=== PATIENT | male | born 1945 | race Caucasian/White ===

== ENCOUNTER → 2016-04-25 | Outpatient (CLI) | payer BC ==
[~2016-04-25] MED LIST: ASPEC81 PO; ASPI81TA28 PO; CARV6.25 PO; CHOL100041 PO; DILT180C70 PO; IBUP-1427 PO; LPT10 PO; LSN/10125 PO; MULTTAB PO; NIAC500T11 PO; NRN/600 PO; OMEG10007 PO; ONDA8TAB6 PO; PRAM1.5T PO; PRLSR20 PO; TADA10TA PO; TADA20TA PO
[2016-04-25 09:47] LABS: CALCIUM 8.7 mg/dl (8.5-10.1)
[2016-04-25 10:04] LABS: CALCIUM URINE 6.1 mg/dl
== END | disposition home or self-care (01) ==
LOC: C.LAB1850 07:17
PROVIDERS: ATTEND Internal Medicine Endocrinology, Diabetes & Metabolism
DX: E83.51 Hypocalcemia (principal); E21.3 Hyperparathyroidism, unspecified

== ENCOUNTER → 2016-05-02 | Outpatient (CLI) | payer BC ==
[~2016-05-02] MED LIST changes: -LSN/10125 PO; -NRN/600 PO
== END | disposition home or self-care (01) ==
LOC: C.LAB 07:49
PROVIDERS: ATTEND Internal Medicine Endocrinology, Diabetes & Metabolism
DX: E27.9 Disorder of adrenal gland, unspecified (principal)

== ENCOUNTER → 2016-06-19 | Outpatient (CLI) | payer BC ==
[2016-06-19 13:59] LABS: BLOOD UREA NITROGEN 18 mg/dl (7-18); GLUCOSE 104 mg/dl (70-99)
[2016-06-19 14:00] LABS: ALT/SGPT 20 U/L (12-78); BUN/CREATININE RATIO 16.1 (10-20); CALCIUM 8.8 mg/dl (8.5-10.1); CARBON DIOXIDE 30 mmol/L (21-32); CHLORIDE 103 mmol/L (98-107); CHOLESTEROL 134 mg/dl (0-200); POTASSIUM 4.1 mmol/L (3.5-5.1); SODIUM 138 mmol/L (136-145); TRIGLYCERIDES 115 mg/dl (0-150); VERY LOW DENSITY LIPOPROT CALC 23 mg/dl
[2016-06-19 14:02] LABS: ALB/GLOB RATIO 1.1 (0.9-2); ALKALINE PHOSPHATASE 91 U/L (45-117); AST/SGOT 13 U/L (15-37); CHOLESTEROL/HDL RATIO 3.7; HDL CHOLESTEROL 36 mg/dl; LDL CHOLESTEROL CALCULATED 75 mg/dl
== END | disposition home or self-care (01) ==
LOC: C.LAB1850 11:15
PROVIDERS: ATTEND Nurse Practitioner Family
DX: E78.5 Hyperlipidemia, unspecified (principal); E83.51 Hypocalcemia; I10 Essential (primary) hypertension; R73.9 Hyperglycemia, unspecified

== ENCOUNTER → 2016-07-31 | Outpatient (CLI) | payer BC ==
[~2016-07-31] MED LIST changes: +LSN/10125 PO; +NRN/600 PO
[2016-07-31 10:31] LABS: BLOOD UREA NITROGEN 21 mg/dl (7-18); BUN/CREATININE RATIO 17.1 (10-20); CALCIUM 8.6 mg/dl (8.5-10.1); CARBON DIOXIDE 30 mmol/L (21-32); CHLORIDE 107 mmol/L (98-107); GLUCOSE 104 mg/dl (70-99); POTASSIUM 3.5 mmol/L (3.5-5.1); SODIUM 144 mmol/L (136-145)
== END | disposition home or self-care (01) ==
LOC: C.LAB1850 09:06
PROVIDERS: ATTEND Internal Medicine Clinical Cardiac Electrophysiology
DX: I10 Essential (primary) hypertension (principal)

== ENCOUNTER 2016-12-30 04:09 | Emergency (ER) | payer BC ==
[~2016-12-30] VITALS: Ht 182.9 cm; Wt 96.1 kg
[~2016-12-30 04:09] MED LIST changes: -ASPI81TA28 PO; -IBUP-1427 PO; -LSN/10125 PO; -NRN/600 PO; -TADA20TA PO
[2016-12-30 04:15] VITALS: O2SAT 97; Ht 182.9 cm; Wt 96.1 kg
--- NOTE | 2016-12-30 04:28 | EMERGENCY ROOM VISIT NOTE ---
History Report prepared by Haile: Maxx Preciado Under the Supervision of: Dr. Casey Montana D.O. First contact with patient: 04:16 Chief Complaint: CARDIAC ASSESSMENT Stated Complaint: CARDIAC SYMPTOMS History of Present Illness The patient is a 71 year old male who presents to the Emergency Room with complaints of nausea that began 3 hours ago. At this time, the patient was going to bed when his symptoms began. He began to feel very "spaced out," with some tingling globally. He was driving to the ER in his private vehicle when he became short of breath, more nauseated, and had some chest tightness. He then called EMS for assistance. He currently feels better without shortness of breath or chest discomfort. He notes to have received an echocardiogram in the recent past. Source of History: patient Onset: 3 hours ago Position: other (GI) Symptom Intensity: moderate Quality: other (Nausea) Timing: worsening Associated Symptoms: + chest pain (Resolved), + SOB (Resolved) Note: He feels spaced out. He denies any other abnormal symptoms at this time. Review of Systems See HPI for pertinent positives and negatives. A total of ten systems were reviewed and were otherwise negative. Past Medical & Surgical Medical Problems: (1) HTN (hypertension) Family History Omitted secondary to the patient's age. Social History Smoking Status: Former Smoker Smokeless Tobacco Use: No Drug Use: none Marital Status: Housing Status: lives with significant other Occupation Status: employed Current/Historical Medications Scheduled Aspirin Enteric Coated (Ecotrin Or Generic *), 81 MG PO HS Atorvastatin (Atorvastatin Calcium), 0.5 TAB PO HS Carvedilol (Coreg), 6.25 MG PO BID Cholecalciferol (D 1000), 1 CAP PO HS Diltiazem Hcl (Diltiazem Hcl), 1 CAP PO HS Fish Oil ([place]-3), 3 CAP PO TID Niacin (Niacin), 500 MG PO HS Omeprazole (Prilosec), 20 MG PO QAM Pramipexole Dihydrochloride (Mirapex), 1 TAB PO HS Tadalafil (Cialis), 20 MG PO UD [Centrum], 1 TAB PO HS Scheduled PRN Ondansetron Hcl (Zofran), 8 MG PO Q6H PRN for Nausea Allergies Coded Allergies: No Known Allergies (Verified , 10/07/15) Physical Exam Vital Signs Date Time Temp Pulse Resp B/P (MAP) Pulse Ox O2 Delivery O2 Flow Rate FiO2 12/30/16 04:17 76 12/30/16 04:15 78 18 139/84 97 Room Air 12/30/16 04:15 97 Room Air 12/30/16 04:15 97 Room Air 12/30/16 04:13 94 Room Air Physical Exam GENERAL: Awake, alert, well-appearing, in no distress HENT: Normocephalic, atraumatic. Oropharynx unremarkable. EYES: Normal conjunctiva. Sclera non-icteric. NECK: Supple. No nuchal rigidity. FROM. No JVD. RESPIRATORY: Clear to auscultation. CARDIAC: Regular rate, normal rhythm. Extremities warm and well perfused. Pulses equal. ABDOMEN: Soft, non-distended. No tenderness to palpation. No rebound or guarding. No masses. RECTAL: Deferred. MUSCULOSKELETAL: Chest examination reveals no tenderness. The back is symmetrical on inspection without obvious abnormality. There is no CVA tenderness to palpation. No joint edema. LOWER EXTREMITIES: Calves are equal size bilaterally and non-tender. No edema. No discoloration. NEURO: Normal sensorium. No sensory or motor deficits noted. SKIN: No rash or jaundice noted. Medical Decision & Procedures ER Provider Diagnostic Interpretation: Radiology results as stated below per my review and radiologist interpretation: Chest x-ray 1 view Findings: A chest x-ray was performed and revealed no pneumothorax, effusion, infiltrate, pulmonary edema, free air under the diaphragm, or wide mediastinum. Per tn CT HEAD: No acute intracranial findings. Chronic appearing ischemic changes. Radiologist: Brian Mari M.D. Laboratory Results 12/30/16 04:05 Red Blood Count 4.98, Mean Corpuscular Volume 95.4, Mean Corpuscular Hemoglobin 31.7, Mean Corpuscular Hemoglobin Concent 33.3, Mean Platelet Volume 11.4, Neutrophils (%) (Auto) 72.2, Lymphocytes (%) (Auto) 14.6, Monocytes (%) (Auto) 9.5, Eosinophils (%) (Auto) 2.3, Basophils (%) (Auto) 0.7, Neutrophils # (Auto) 6.33, Lymphocytes # (Auto) 1.28, Monocytes # (Auto) 0.83, Eosinophils # (Auto) 0.20, Basophils # (Auto) 0.06 12/30/16 04:05 Test 12/30/16 04:05 12/30/16 04:21 White Blood Count 8.76 K/uL (4.8-10.8) Red Blood Count 4.98 M/uL (4.7-6.1) Hemoglobin 15.8 g/dL (14.0-18.0) Hematocrit 47.5 % (42-52) Mean Corpuscular Volume 95.4 fL (80-100) Mean Corpuscular Hemoglobin 31.7 pg (25-34) Mean Corpuscular Hemoglobin Concent 33.3 g/dl (32-36) Platelet Count 243 K/uL (130-400) Mean Platelet Volume 11.4 fL (7.4-10.4) Neutrophils (%) (Auto) 72.2 % Lymphocytes (%) (Auto) 14.6 % Monocytes (%) (Auto) 9.5 % Eosinophils (%) (Auto) 2.3 % Basophils (%) (Auto) 0.7 % Neutrophils # (Auto) 6.33 K/uL (1.4-6.5) Lymphocytes # (Auto) 1.28 K/uL (1.2-3.4) Monocytes # (Auto) 0.83 K/uL (0.11-0.59) Eosinophils # (Auto) 0.20 K/uL (0-0.5) Basophils # (Auto) 0.06 K/uL (0-0.2) RDW Standard Deviation 47.0 fL (36.4-46.3) RDW Coefficient of Variation 13.4 % (11.5-14.5) Immature Granulocyte % (Auto) 0.7 % Immature Granulocyte # (Auto) 0.06 K/uL (0.00-0.02) Prothrombin Time 9.9 SECONDS (9.0-12.0) Prothromb Time International Ratio 0.9 (0.9-1.1) Anion Gap 7.0 mmol/L (3-11) Est Creatinine Clear Calc Drug Dose 64.5 ml/min Estimated GFR () 64.5 Estimated GFR (Non- 55.7 BUN/Creatinine Ratio 15.8 (10-20) Calcium Level 9.0 mg/dl (8.5-10.1) Total Bilirubin 0.5 mg/dl (0.2-1) Direct Bilirubin mg/dl (0-0.2) Aspartate Amino Transf (AST/SGOT) 18 U/L (15-37) Alanine Aminotransferase (ALT/SGPT) 20 U/L (12-78) Alkaline Phosphatase 85 U/L (45-117) Total Protein 7.0 gm/dl (6.4-8.2) Albumin 3.6 gm/dl (3.4-5.0) Chemistry Specimen Hemolysis Bedside Troponin I < 0.030 ng/ml (0-0.045) Laboratory results reviewed by me ECG Indication: nausea Rate (beats per minute): 76 Rhythm: normal sinus Findings: RBBB, no acute ischemic change ED Course 0416: The patient was evaluated in room A10. A complete history and physical exam was performed. 0555: I reevaluated the patient. Discussed results and discharge instructions: He verbalized understanding and agreement. The patient is ready for discharge. Medical Decision Differential diagnoses include cardiac etiologies, neurologic etiologies, anxiety, metabolic derangement, and vertigo. Patient resting in no distress on repeat examination at 5:58 AM. Patient is nonfocal neurologically NIH score of 0 no current palpitations vital signs are stable. I discussed the evaluation with the patient reviewed his CAT scan lab work and EKG with him. Patient states that he is much improved. Patient will follow-up and continue further evaluation of his complaint Medication Reconcilliation Current Medication List: was personally reviewed by me Blood Pressure Screening Patient's blood pressure: Normal blood pressure Blood pressure disposition: Did not require urgent referral Impression Primary Impression: Dizziness Additional Impression: Palpitations Scribe Attestation The scribe's documentation has been prepared under my direction and personally reviewed by me in its entirety. I confirm that the note above accurately reflects all work, treatment, procedures, and medical decision making performed by me. Departure Information Dispostion Home / Self-Care Referrals Carlos Granda III, CRNP (PCP) Forms IMPORTANT VISIT INFORMATION Patient Instructions ED Palpitations, My [facility] Health Problem Qualifiers
[2016-12-30 04:31] LABS: BASO % 0.7 %; BASO ABS # 0.06 K/uL (0-0.2); COMPLETE YES; EOS % 2.3 %; HEMATOCRIT 47.5 % (42-52); IG% 0.7 %; LYMPH % 14.6 %; LYMPH ABS # 1.28 K/uL (1.2-3.4); MEAN CELL VOLUME 95.4 fL (80-100); MEAN CORPUSCULAR HEMOGLOBIN 31.7 pg (25-34); MEAN CORPUSCULAR HGB CONC 33.3 g/dl (32-36); MEAN PLATELET VOLUME 11.4 fL (7.4-10.4); MONO % 9.5 %; NEUT % 72.2 %; PLATELET COUNT 243 K/uL (130-400); RED BLOOD COUNT 4.98 M/uL (4.7-6.1); WHITE BLOOD COUNT 8.76 K/uL (4.8-10.8)
[2016-12-30 04:40] LABS: INR 0.9 (0.9-1.1); PROTHROMBIN TIME (PATIENT) 9.9 SECONDS (9.0-12.0)
[2016-12-30 04:54] LABS: ALKALINE PHOSPHATASE 85 U/L (45-117); ALT/SGPT 20 U/L (12-78); AST/SGOT 18 U/L (15-37); BLOOD UREA NITROGEN 21 mg/dl (7-18); BUN/CREATININE RATIO 15.8 (10-20); CARBON DIOXIDE 29 mmol/L (21-32); CHLORIDE 102 mmol/L (98-107); GLUCOSE 147 mg/dl (70-99); POTASSIUM 3.5 mmol/L (3.5-5.1); SODIUM 138 mmol/L (136-145)
[2016-12-30 06:15] VITALS: BP 137/80; PULSE 87; O2SAT 99
--- NOTE | 2016-12-30 06:48 | DIAGNOSTIC IMAGING REPORT ---
HEAD WITHOUT CONTRAST (CT) CT DOSE: 614.27 mGy.cm HISTORY: Mental status change dizzy TECHNIQUE: Multiaxial CT images of the head were performed without the use of intravenous contrast. A dose lowering technique was utilized adhering to the principles of ALARA. Comparison: None. Findings: The paranasal sinuses and mastoid air cells are clear. The calvarium and skull base are intact. The ventricles and sulci are within normal limits. There is no mass, hematoma, midline shift, or acute infarct. Impression: No acute intracranial abnormality. The above report was generated using voice recognition software. It may contain grammatical, syntax or spelling errors. Electronically signed by: London Garcia M.D. 12/30/2016 6:46 AM Dictated Date/Time: 12/30/2016 6:46 AM
--- NOTE | 2016-12-30 06:49 | DIAGNOSTIC IMAGING REPORT ---
CHEST ONE VIEW PORTABLE CLINICAL HISTORY: CHEST PAIN dyspnea COMPARISON STUDY: 07/14/2014 FINDINGS: The bones soft tissues and hemidiaphragms are normal. The cardiomediastinal silhouette is normal. The lungs are clear. The pulmonary vasculature is normal. IMPRESSION: Negative chest. The above report was generated using voice recognition software. It may contain grammatical, syntax or spelling errors. Electronically signed by: London Garcia M.D. 12/30/2016 6:47 AM Dictated Date/Time: 12/30/2016 6:47 AM
== END 2016-12-30 06:18 | disposition home or self-care (01) ==
LOC: EDBD 04:09 → C.EDA 04:15
DX: R42 Dizziness and giddiness (principal); R00.2 Palpitations; I10 Essential (primary) hypertension; Z87.891 Personal history of nicotine dependence; Z79.82 Long term (current) use of aspirin; Z79.899 Other long term (current) drug therapy

== ENCOUNTER 2017-01-13 11:17 | Emergency (ER) | payer BC ==
[~2017-01-13] VITALS: Ht 182.9 cm; Wt 93.0 kg
[2017-01-13 11:20] VITALS: TEMP 36.8; Ht 182.9 cm; Wt 93.0 kg
[2017-01-13 11:39] VITALS: O2SAT 96
--- NOTE | 2017-01-13 11:54 | EMERGENCY ROOM VISIT NOTE ---
History Report prepared by Haile: Maxx Preciado Under the Supervision of: Dr. Gustavo Vallejo M.D. First contact with patient: 11:30 Chief Complaint: STROKE SYMPTOMS Stated Complaint: NUMB LEFT ARM - POSSIBLY STOKE SYMPTOMS History of Present Illness The patient is a 71 year old male who presents to the Emergency Room with complaints of left arm numbness that began yesterday morning, over 24 hours ago. At this time, he began to feel a tingling sensation down his left arm with mild weakness in his hand to relationship specialist. He went to his PCP today, who sent him to the ER to rule out a possible stroke. He denies any difficulty moving his extremities or changes in his vision/hearing. He does not some shortness of breath when he is lying down on his back. He denies any other abnormal symptoms or pain at this time. He has a past medical history of restless leg syndrome and hypertension. Source of History: patient Onset: yesterday normal Position: arm (left) Symptom Intensity: moderate Quality: numbness Timing: constant Associated Symptoms: + SOB (When he is lying on his back), + weakness (He has mild weakness to his left hand with relationship specialist) Note: He denies any other abnormal symptoms. Review of Systems All systems have been listed, reviewed, and are negative other than those previously mentioned. Please see Additional Medical History Sheet. Past Medical & Surgical Medical Problems: (1) HTN (hypertension) Family History Omitted secondary to the patient's age. Social History Smoking Status: Former Smoker Smokeless Tobacco Use: No Drug Use: none Marital Status: Housing Status: lives with significant other Occupation Status: employed Current/Historical Medications Scheduled Aspirin (Aspirin Ec), 81 MG PO DAILY Atorvastatin (Atorvastatin Calcium), 0.5 TAB PO HS Carvedilol (Coreg), 6.25 MG PO BID Cholecalciferol (D 1000), 1 CAP PO HS Fish Oil ([place]-3), 3 CAP PO TID Ibuprofen Tab (Motrin), 600 MG PO Q6H Niacin (Niacin), 500 MG PO HS Omeprazole (Prilosec), 20 MG PO QAM Tadalafil (Cialis), 20 MG PO UD Scheduled PRN Ondansetron Hcl (Zofran), 8 MG PO Q6H PRN for Nausea Allergies Coded Allergies: No Known Allergies (Verified , 10/07/15) Physical Exam Vital Signs Date Time Temp Pulse Resp B/P (MAP) Pulse Ox O2 Delivery O2 Flow Rate FiO2 01/13/17 15:15 65 20 120/83 97 Room Air 01/13/17 13:20 75 20 112/83 96 Room Air 01/13/17 12:11 69 01/13/17 11:39 96 Room Air 01/13/17 11:20 36.8 80 16 124/83 96 Room Air Physical Exam GENERAL: Patient awake, alert, oriented x 3. Patient follows commands. Patient does not appear toxic. Patient is adequately hydrated and well- nourished. SKIN: No erythema, pallor, cyanosis or rash HEENT: Normal head, pupils equal, reactive to light and accommodation. Oral cavity and posterior pharynx appear normal. Neck: Without adenopathy, no neck vein distention. LUNGS: Clear to auscultation. No wheezes, no rales, no rhonchi. HEART: No murmurs. No gallops. No rubs ABDOMEN: No masses, no rebound, no hepatomegaly or splenomegaly. EXTREMITIES: Knee brace to the left knee. No signs of trauma. No pedal or pretibial edema. No calf or thigh tenderness. NEUROLOGIC: Cranial nerves II-XII within normal limits. Patient has slightly weaker relationship specialist strength on the left when compared to the right. No gross motor sensory function deficits. Medical Decision & Procedures ER Provider Diagnostic Interpretation: Radiology results as stated below per my review and radiologist interpretation: HEAD CT NONCONTRAST CT DOSE: 884.08 mGy.cm HISTORY: left arm numbness TECHNIQUE: Multiaxial CT images of the head were performed without the use of intravenous contrast. Automated exposure control was utilized for this study. A dose lowering technique was utilized adhering to the principles of ALARA. Comparison: Head CT 12/30/2016. Findings: The paranasal sinuses and mastoid air cells are clear. The calvarium and skull base are intact. The ventricles and sulci are within normal limits. There is no mass, hematoma, midline shift, or acute infarct. Impression: No acute intracranial abnormality. Electronically signed by: Abhi Sneed M.D. 01/13/2017 12:14 PM Dictated Date/Time: 01/13/2017 12:10 PM CHEST 2 VIEWS ROUTINE HISTORY: Short of breath. COMPARISON: Chest 12/30/2016. FINDINGS: The lungs are clear. Cardiac silhouette is normal in size. No pleural effusions. No pneumothorax. Calcified right peritracheal lymph nodes are again noted. IMPRESSION: No significant change compared to the prior study. No acute process. Electronically signed by: Abhi Sneed M.D. 01/13/2017 12:25 PM Dictated Date/Time: 01/13/2017 12:[address] DOSE: 285.11 mGy.cm HISTORY: numbness left arm concern about C 5,6,7 TECHNIQUE: Multiaxial CT images of the cervical spine were performed and reformatted in the sagittal and coronal plane without the use of contrast. A dose lowering technique was utilized adhering to the principles of ALARA. COMPARISON: None. FINDINGS: No fractures. No subluxation. Prevertebral soft tissues and the C1-C2 interval are intact. No pneumothorax. Mild disc space narrowing at C5-C6 with small endplate osteophytes are this results in moderate right-sided neural foraminal narrowing. No significant left-sided neural foraminal narrowing. No significant central canal narrowing by CT technique. IMPRESSION: No fractures within the cervical spine. Mild degenerative disc disease at C5-C6 with moderate right-sided neural foraminal narrowing. Electronically signed by: Abhi Sneed M.D. 01/13/2017 2:27 PM Dictated Date/Time: 01/13/2017 2:19 PM Laboratory Results 01/13/17 11:56 Red Blood Count 4.69, Mean Corpuscular Volume 96.2, Mean Corpuscular Hemoglobin 32.2, Mean Corpuscular Hemoglobin Concent 33.5, Mean Platelet Volume 10.9, Neutrophils (%) (Auto) 65.0, Lymphocytes (%) (Auto) 15.8, Monocytes (%) (Auto) 14.7, Eosinophils (%) (Auto) 3.3, Basophils (%) (Auto) 0.9, Neutrophils # (Auto ) 4.57, Lymphocytes # (Auto) 1.11, Monocytes # (Auto) 1.03, Eosinophils # (Auto ) 0.23, Basophils # (Auto) 0.06 01/13/17 11:56 Test 01/13/17 11:56 White Blood Count 7.02 K/uL (4.8-10.8) Red Blood Count 4.69 M/uL (4.7-6.1) Hemoglobin 15.1 g/dL (14.0-18.0) Hematocrit 45.1 % (42-52) Mean Corpuscular Volume 96.2 fL (80-100) Mean Corpuscular Hemoglobin 32.2 pg (25-34) Mean Corpuscular Hemoglobin Concent 33.5 g/dl (32-36) Platelet Count 239 K/uL (130-400) Mean Platelet Volume 10.9 fL (7.4-10.4) Neutrophils (%) (Auto) 65.0 % Lymphocytes (%) (Auto) 15.8 % Monocytes (%) (Auto) 14.7 % Eosinophils (%) (Auto) 3.3 % Basophils (%) (Auto) 0.9 % Neutrophils # (Auto) 4.57 K/uL (1.4-6.5) Lymphocytes # (Auto) 1.11 K/uL (1.2-3.4) Monocytes # (Auto) 1.03 K/uL (0.11-0.59) Eosinophils # (Auto) 0.23 K/uL (0-0.5) Basophils # (Auto) 0.06 K/uL (0-0.2) RDW Standard Deviation 48.7 fL (36.4-46.3) RDW Coefficient of Variation 13.8 % (11.5-14.5) Immature Granulocyte % (Auto) 0.3 % Immature Granulocyte # (Auto) 0.02 K/uL (0.00-0.02) Anion Gap 6.0 mmol/L (3-11) Est Creatinine Clear Calc Drug Dose 58.9 ml/min Estimated GFR () 64.5 Estimated GFR (Non- 55.7 BUN/Creatinine Ratio 15.9 (10-20) Calcium Level 8.5 mg/dl (8.5-10.1) Total Bilirubin 0.4 mg/dl (0.2-1) Aspartate Amino Transf (AST/SGOT) 13 U/L (15-37) Alanine Aminotransferase (ALT/SGPT) 21 U/L (12-78) Alkaline Phosphatase 90 U/L (45-117) Total Protein 6.7 gm/dl (6.4-8.2) Albumin 3.5 gm/dl (3.4-5.0) Globulin 3.2 gm/dl (2.5-4.0) Albumin/Globulin Ratio 1.1 (0.9-2) Laboratory results as stated above per my review. ECG Indication: weakness Rate (beats per minute): 77 Rhythm: normal sinus Findings: RBBB, no ectopy ED Course 1130: Past medical records reviewed. The patient was evaluated in room C9. A complete history and physical examination was performed. 1538: Upon reevaluation, the patient appeared to have improvement of his symptoms. I discussed today's findings with him. He verbalized agreement of the treatment plan. He was discharged home. Medical Decision Differential diagnoses considered include TIA, CVA, bronchitis, cervical radiculopathy and pneumonia. The patient is here with numbness into his left arm and some weakness on that side. Later in the course of his stay he confided that he had been sleeping on recliner and the symptoms began at that time. Patient does have slight tenderness in the cervical spine but no step-offs. There is no signs of infection. Multiple labs, CT and EKG were performed. Patient does not have evidence of a stroke. CT of his neck revealed degenerative changes in the C5 6 7 area with narrowing more prominent on the right. Despite this I still believe his symptoms are related to the degenerative changes in his neck. I do not believe he is experiencing a TIA or CVA. The patient will be started on ibuprofen. He is to follow-up with his family physician within the next 10 days or return here sooner if symptoms worsen. Medication Reconcilliation Current Medication List: was personally reviewed by me Blood Pressure Screening Patient's blood pressure: Normal blood pressure Blood pressure disposition: Did not require urgent referral Impression Primary Impression: Cervical radiculopathy Scribe Attestation The scribe's documentation has been prepared under my direction and personally reviewed by me in its entirety. I confirm that the note above accurately reflects all work, treatment, procedures, and medical decision making performed by me. Departure Information Dispostion Home / Self-Care Prescriptions Ibuprofen Tab (MOTRIN) 600 Mg Tab 600 MG PO Q6H, #30 TABS Prov: Gustavo Vallejo M.D. 01/13/17 Referrals Carlos Granda III, CRNP (PCP) Forms HOME CARE DOCUMENTATION FORM, IMPORTANT VISIT INFORMATION Patient Instructions ED Cervical Radiculopathy, My [facility] Additional Instructions 600 mg of ibuprofen every 6 hours until symptoms have resolved. Follow-up with your family physician within the next 10 days. Return here sooner if your symptoms worsen.
[2017-01-13 12:11] LABS: BASO % 0.9 %; BASO ABS # 0.06 K/uL (0-0.2); COMPLETE YES; EOS % 3.3 %; HEMATOCRIT 45.1 % (42-52); IG% 0.3 %; LYMPH % 15.8 %; LYMPH ABS # 1.11 K/uL (1.2-3.4); MEAN CELL VOLUME 96.2 fL (80-100); MEAN CORPUSCULAR HEMOGLOBIN 32.2 pg (25-34); MEAN CORPUSCULAR HGB CONC 33.5 g/dl (32-36); MEAN PLATELET VOLUME 10.9 fL (7.4-10.4); MONO % 14.7 %; PLATELET COUNT 239 K/uL (130-400); RED BLOOD COUNT 4.69 M/uL (4.7-6.1); WHITE BLOOD COUNT 7.02 K/uL (4.8-10.8)
--- NOTE | 2017-01-13 12:16 | DIAGNOSTIC IMAGING REPORT ---
HEAD CT NONCONTRAST CT DOSE: 884.08 mGy.cm HISTORY: left arm numbness TECHNIQUE: Multiaxial CT images of the head were performed without the use of intravenous contrast. Automated exposure control was utilized for this study. A dose lowering technique was utilized adhering to the principles of ALARA. Comparison: Head CT 12/30/2016. Findings: The paranasal sinuses and mastoid air cells are clear. The calvarium and skull base are intact. The ventricles and sulci are within normal limits. There is no mass, hematoma, midline shift, or acute infarct. Impression: No acute intracranial abnormality. Electronically signed by: Abhi Sneed M.D. 01/13/2017 12:14 PM Dictated Date/Time: 01/13/2017 12:10 PM
--- NOTE | 2017-01-13 12:27 | DIAGNOSTIC IMAGING REPORT ---
CHEST 2 VIEWS ROUTINE HISTORY: Short of breath. COMPARISON: Chest 12/30/2016. FINDINGS: The lungs are clear. Cardiac silhouette is normal in size. No pleural effusions. No pneumothorax. Calcified right peritracheal lymph nodes are again noted. IMPRESSION: No significant change compared to the prior study. No acute process. Electronically signed by: Abhi Sneed M.D. 01/13/2017 12:25 PM Dictated Date/Time: 01/13/2017 12:24 PM
[2017-01-13 12:28] LABS: BUN/CREATININE RATIO 15.9 (10-20); CALCIUM 8.5 mg/dl (8.5-10.1); CREATININE 1.3 mg/dl (0.60-1.40); POTASSIUM 3.6 mmol/L (3.5-5.1)
[2017-01-13 12:31] LABS: ALB/GLOB RATIO 1.1 (0.9-2)
[2017-01-13] MEDS ORDERED: TADA20TA PO (12:48)
[2017-01-13] MEDS ORDERED: ASPI81TA28 PO (12:48)
--- NOTE | 2017-01-13 14:28 | DIAGNOSTIC IMAGING REPORT ---
CERVICAL SPINE CT CT DOSE: 285.11 mGy.cm HISTORY: numbness left arm concern about C 5,6,7 TECHNIQUE: Multiaxial CT images of the cervical spine were performed and reformatted in the sagittal and coronal plane without the use of contrast. A dose lowering technique was utilized adhering to the principles of ALARA. COMPARISON: None. FINDINGS: No fractures. No subluxation. Prevertebral soft tissues and the C1-C2 interval are intact. No pneumothorax. Mild disc space narrowing at C5-C6 with small endplate osteophytes are this results in moderate right-sided neural foraminal narrowing. No significant left-sided neural foraminal narrowing. No significant central canal narrowing by CT technique. IMPRESSION: No fractures within the cervical spine. Mild degenerative disc disease at C5-C6 with moderate right-sided neural foraminal narrowing. Electronically signed by: Abhi Sneed M.D. 01/13/2017 2:27 PM Dictated Date/Time: 01/13/2017 2:19 PM
[2017-01-13 15:15] VITALS: BP 120/83; PULSE 65; O2SAT 97
[2017-01-13] MEDS ORDERED: IBUP-1427 PO (15:32)
== END 2017-01-13 15:49 | disposition home or self-care (01) ==
LOC: C.EDB 11:18 → C.EDC 15:49
DX: M54.12 Radiculopathy, cervical region (principal); I10 Essential (primary) hypertension; Z87.891 Personal history of nicotine dependence; Z79.82 Long term (current) use of aspirin; Z79.899 Other long term (current) drug therapy

== ENCOUNTER → 2017-02-09 | Outpatient (CLI) | payer BC ==
[~2017-02-09] MED LIST changes: -ASPEC81 PO; +ASPI81TA28 PO; -DILT180C70 PO; +IBUP-1427 PO; -MULTTAB PO; -PRAM1.5T PO; -TADA10TA PO; +TADA20TA PO
[2017-02-09 15:49] LABS: BASO % 0.9 %; BASO ABS # 0.07 K/uL (0-0.2); COMPLETE YES; EOS % 2.6 %; HEMATOCRIT 46.2 % (42-52); IG% 0.3 %; LYMPH % 14.7 %; LYMPH ABS # 1.09 K/uL (1.2-3.4); MEAN CELL VOLUME 95.3 fL (80-100); MEAN CORPUSCULAR HEMOGLOBIN 31.8 pg (25-34); MEAN CORPUSCULAR HGB CONC 33.3 g/dl (32-36); MEAN PLATELET VOLUME 11.8 fL (7.4-10.4); MONO % 10.8 %; NEUT % 70.7 %; PLATELET COUNT 256 K/uL (130-400); RED BLOOD COUNT 4.85 M/uL (4.7-6.1); WHITE BLOOD COUNT 7.41 K/uL (4.8-10.8)
[2017-02-09 16:08] LABS: ALT/SGPT 20 U/L (12-78); BLOOD UREA NITROGEN 15 mg/dl (7-18); BUN/CREATININE RATIO 12.6 (10-20); CALCIUM 9.3 mg/dl (8.5-10.1); CARBON DIOXIDE 29 mmol/L (21-32); CHLORIDE 103 mmol/L (98-107); GLUCOSE 156 mg/dl (70-99); POTASSIUM 4.1 mmol/L (3.5-5.1); SODIUM 139 mmol/L (136-145)
[2017-02-09 16:12] LABS: ALKALINE PHOSPHATASE 81 U/L (45-117); AST/SGOT 11 U/L (15-37); CHOLESTEROL 171 mg/dl (0-200); CHOLESTEROL/HDL RATIO 4.6; HDL CHOLESTEROL 37 mg/dl; LDL CHOLESTEROL CALCULATED 94 mg/dl; TRIGLYCERIDES 201 mg/dl (0-150); VERY LOW DENSITY LIPOPROT CALC 40 mg/dl
[2017-02-09 16:34] LABS: RATIO 3.8 mcg/mg (0-30.0)
[2017-02-10 07:03] LABS: ESTIMATED AVERAGE GLUCOSE 108 mg/dl; HA1C FLAG Normal (Normal)
== END | disposition home or self-care (01) ==
LOC: C.LAB1850 14:16
PROVIDERS: ATTEND Nurse Practitioner Family
DX: E78.5 Hyperlipidemia, unspecified (principal); R73.9 Hyperglycemia, unspecified; J44.9 Chronic obstructive pulmonary disease, unspecified; I10 Essential (primary) hypertension; E83.51 Hypocalcemia

== ENCOUNTER 2017-03-06 08:24 | Emergency (ER) | payer BC ==
[~2017-03-06] VITALS: Ht 182.9 cm; Wt 96.2 kg
[2017-03-06 08:28] VITALS: TEMP 36.7; Ht 182.9 cm; Wt 96.2 kg
[2017-03-06 08:34] VITALS: O2SAT 99
[2017-03-06] MEDS ORDERED: ONDANSETRON INJ 2 MG/ML 2 ML VIAL IV STA (08:36)
[2017-03-06] MEDS ORDERED: GI COCKTAIL PO STA (08:36)
[2017-03-06] MEDS ORDERED: MoRPHine SULFATE 4 MG/ML 1 ML CARP\\VIAL IV STA (08:36)
--- NOTE | 2017-03-06 08:40 | EMERGENCY ROOM VISIT NOTE ---
History Report prepared by Haile: Jeanie Mckenzie Under the Supervision of: Dr. Chan Kruger M.D. First contact with patient: 08:27 Chief Complaint: CHEST PAIN Stated Complaint: CHEST/ABD. PAIN History of Present Illness The patient is a 72 year old white male with a past medical history of hypertension who presents to the ED with a cc of persistent, burning chest pain beginning around 0600. Positive nausea and dry heaves. Negative fever, chills, cough, diaphoresis, shortness of breath, pain radiating into arm, neck, or shoulder. The patient states that he woke this morning and then developed his chest pain. The patient rates his discomfort as a 7/10 in severity. He states that he tried drinking baking soda without relief of his symptoms. The patient reports a family history of heart disease, noting that his father had an NM at the age of 55. He reports that he is a previous heavy smoker, but states that he quit smoking several years ago. The patient denies any alcohol use. He denies any history of PEs. Source of History: patient Onset: around 0600 Position: chest Symptom Intensity: 7/10 Quality: burning Timing: other (persistent) Associated Symptoms: + nausea, No fevers, No chills, No diaphoresis, No cough, No neck pain, No SOB, No vomiting Review of Systems See HPI for pertinent positives and negatives. A total of ten systems were reviewed and were otherwise negative. Past Medical & Surgical Medical Problems: (1) HTN (hypertension) Social History Smoking Status: Former Smoker Drug Use: none Marital Status: Housing Status: lives with significant other Occupation Status: employed Current/Historical Medications Scheduled Aspirin (Aspirin Ec), 81 MG PO DAILY Atorvastatin (Atorvastatin Calcium), 10 MG PO Q2D Carvedilol (Coreg), 6.25 MG PO BID Cholecalciferol (D 1000), 1,000 UNITS PO HS Fish Oil ([place]-3), 2 CAP PO HS Fish Oil ([place]-3), 1 CAP PO QAM Gabapentin (Neurontin), 600 MG PO BID Hctz/Lisinopril (Lisinopril/Hctz 10/12.5 Mg), 1 TAB PO BID Niacin (Niacin), 500 MG PO HS Omeprazole (Prilosec), 20 MG PO QAM Tadalafil (Cialis), 20 MG PO UD Allergies Coded Allergies: No Known Allergies (Verified , 03/06/17) Physical Exam Vital Signs Date Time Temp Pulse Resp B/P (MAP) Pulse Ox O2 Delivery O2 Flow Rate FiO2 03/06/17 12:13 77 20 102/73 94 03/06/17 11:25 78 19 123/79 94 03/06/17 10:20 73 25 03/06/17 10:10 71 20 03/06/17 10:09 70 18 03/06/17 10:00 122/79 03/06/17 10:00 69 23 122/79 03/06/17 09:54 69 20 03/06/17 09:50 68 21 03/06/17 09:45 121/77 03/06/17 09:45 121/77 03/06/17 09:40 66 18 03/06/17 09:39 68 22 03/06/17 09:30 61 22 112/72 03/06/17 09:30 112/72 03/06/17 09:24 62 16 03/06/17 09:20 62 15 03/06/17 09:19 84/56 03/06/17 09:19 84/56 03/06/17 09:18 49 17 84/56 95 03/06/17 09:10 42 15 03/06/17 09:09 41 16 03/06/17 09:00 45 20 143/98 03/06/17 09:00 143/98 03/06/17 08:54 60 19 03/06/17 08:39 63 14 03/06/17 08:35 143/98 03/06/17 08:34 99 Room Air 03/06/17 08:32 97 Room Air 03/06/17 08:32 65 03/06/17 08:28 161/98 03/06/17 08:28 36.7 60 20 161/98 96 Room Air Physical Exam GENERAL: Awake, alert, well-appearing, NAD HENT: Normocephalic, atraumatic. EYES: Normal conjunctiva. Sclera non-icteric. NECK: Supple. No nuchal rigidity. FROM. RESPIRATORY: CTAB, no rhonchi, wheezing, crackles CARDIAC: RRR, no MRG ABDOMEN: Soft, epigastric pain, nondistended, BS+ MSK: Xiphoid pain to palpation, trace lower extremity edema, no calf pain or erythema NEURO: GCS 15, CN 2-12 intact, moves all 4s on command SKIN: No rash or jaundice noted. Medical Decision & Procedures ER Provider Diagnostic Interpretation: X-ray: Per my interpretation, radiologist review. CHEST ONE VIEW PORTABLE HISTORY: 72 years-old Male CHEST PAIN acute atypical chest pain. Burning sensation of the mid sternal chest with nausea COMPARISON: Chest radiograph 01/13/2017 TECHNIQUE: Portable upright AP view of the chest FINDINGS: Cardiac silhouette is within normal limits. There is atherosclerosis of the aorta. Calcified right hilar lymph nodes compatible with prior granulomatous disease. There is no pneumothorax, pleural effusion, focal airspace consolidation or overt pulmonary edema. The bones of the chest are grossly intact. IMPRESSION: 1. No acute cardiopulmonary process. 2. Prior granulomatous disease. The above report was generated using voice recognition software. It may contain grammatical, syntax or spelling errors. Electronically signed by: Aneudy Fung M.D. 03/06/2017 8:54 AM Dictated Date/Time: 03/06/2017 8:52 AM Laboratory Results 03/06/17 08:33 Red Blood Count 4.88, Mean Corpuscular Volume 95.9, Mean Corpuscular Hemoglobin 32.6, Mean Corpuscular Hemoglobin Concent 34.0, Mean Platelet Volume 11.2, Neutrophils (%) (Auto) 58.4, Lymphocytes (%) (Auto) 22.0, Monocytes (%) (Auto) 14.0, Eosinophils (%) (Auto) 3.9, Basophils (%) (Auto) 1.3, Neutrophils # (Auto ) 4.06, Lymphocytes # (Auto) 1.53, Monocytes # (Auto) 0.97, Eosinophils # (Auto ) 0.27, Basophils # (Auto) 0.09 03/06/17 08:33 Test 03/06/17 08:33 03/06/17 08:37 03/06/17 11:00 White Blood Count 6.95 K/uL (4.8-10.8) Red Blood Count 4.88 M/uL (4.7-6.1) Hemoglobin 15.9 g/dL (14.0-18.0) Hematocrit 46.8 % (42-52) Mean Corpuscular Volume 95.9 fL (80-100) Mean Corpuscular Hemoglobin 32.6 pg (25-34) Mean Corpuscular Hemoglobin Concent 34.0 g/dl (32-36) Platelet Count 270 K/uL (130-400) Mean Platelet Volume 11.2 fL (7.4-10.4) Neutrophils (%) (Auto) 58.4 % Lymphocytes (%) (Auto) 22.0 % Monocytes (%) (Auto) 14.0 % Eosinophils (%) (Auto) 3.9 % Basophils (%) (Auto) 1.3 % Neutrophils # (Auto) 4.06 K/uL (1.4-6.5) Lymphocytes # (Auto) 1.53 K/uL (1.2-3.4) Monocytes # (Auto) 0.97 K/uL (0.11-0.59) Eosinophils # (Auto) 0.27 K/uL (0-0.5) Basophils # (Auto) 0.09 K/uL (0-0.2) RDW Standard Deviation 48.4 fL (36.4-46.3) RDW Coefficient of Variation 13.7 % (11.5-14.5) Immature Granulocyte % (Auto) 0.4 % Immature Granulocyte # (Auto) 0.03 K/uL (0.00-0.02) Prothrombin Time 9.9 SECONDS (9.0-12.0) Prothromb Time International Ratio 0.9 (0.9-1.1) Activated Partial Thromboplast Time 28.1 SECONDS (21.0-31.0) Partial Thromboplastin Ratio 1.1 Anion Gap 7.0 mmol/L (3-11) Est Creatinine Clear Calc Drug Dose 60.4 ml/min Estimated GFR () 60.1 Estimated GFR (Non- 51.9 BUN/Creatinine Ratio 15.3 (10-20) Calcium Level 9.3 mg/dl (8.5-10.1) Total Bilirubin 0.5 mg/dl (0.2-1) Direct Bilirubin 0.1 mg/dl (0-0.2) Aspartate Amino Transf (AST/SGOT) 16 U/L (15-37) Alanine Aminotransferase (ALT/SGPT) 19 U/L (12-78) Alkaline Phosphatase 85 U/L (45-117) Pro-B-Type Natriuretic Peptide 113 pg/ml (0-900) Total Protein 7.3 gm/dl (6.4-8.2) Albumin 3.7 gm/dl (3.4-5.0) Lipase 221 U/L (73-393) Bedside Troponin I < 0.030 ng/ml (0-0.045) Troponin I < 0.015 ng/ml (0-0.045) Laboratory results reviewed by me Medications Administered Medications (Trade) Dose Ordered Sig/Michaela Route Start Time Stop Time Status Last Admin Dose Admin Ondansetron HCl (Zofran Inj) 4 mg NOW STAT IV 03/06/17 08:36 03/06/17 08:40 DC 03/06/17 08:47 4 MG Morphine Sulfate (MoRPHine SULFATE INJ) 4 mg NOW STAT IV 03/06/17 08:36 03/06/17 08:40 DC 03/06/17 08:47 4 MG Al Hydroxide/Mg Hydroxide (Maalox Susp) 30 ml STK-MED ONCE .ROUTE 03/06/17 08:43 03/06/17 08:44 DC 03/06/17 08:47 30 ML Lidocaine HCl (Viscous Lidocaine 2% Soln) 20 ml STK-MED ONCE .ROUTE 03/06/17 08:44 03/06/17 08:45 DC 03/06/17 08:47 20 ML Lactated Ringer's 1,000 ml @ 500 mls/hr Q2H STAT IV 03/06/17 09:24 03/06/17 11:23 DC 03/06/17 09:24 500 MLS/HR ECG Indication: chest pain Rate (beats per minute): 58 Rhythm: sinus bradycardia Findings: RBBB, T-wave inversion (in lead three), other (wide QRS, no other STS or TWI) Comparison ECG Date: 01/13/17 Change: no significant change ED Course 0831: The patient was evaluated in room A10. A complete history and physical exam was performed. 0836: Ordered GI Cocktail 24 ml PO, Morphine Sulfate 4 mg IV, Zofran Inj 4 mg IV. 0924: Ordered Lactated Ringer's 1000 ml @ 500 mls/hr IV. 1015: I reevaluated the patient and he states that his chest pain has resolved. He notes that he recently had a stress test and echocardiogram within the last two months. I discussed all the exam findings with him and the treatment plan. He is going to have a repeat troponin and he is going to get up and walk around. 1206: I reevaluated the patient and he is resting comfortably. I discussed the treatment plan with him. He is ready to go home. Medical Decision Differential diagnosis: Etiologies such as cardiac ischemia, aortic dissection, pulmonary embolism, pneumonia, pneumothorax, musculoskeletal, infections, pericarditis, myocarditis , esophageal rupture, gastrointestinal, as well as others were entertained. The patient is a 72 year old white male with a past medical history of hypertension who presents to the ED with a cc of persistent, burning chest pain beginning around 0600. Patient was seen and evaluated the bedside. Patient states that he developed symptoms of lower chest and epigastric pain. Patient describes it as burning and sharp. It is nonradiating. Patient states that he woke up in the and experiences symptoms. He did not wake up because of his symptoms. Patient was given some pain control GI cocktail and some morphine. Patient did have blood work that was completed along with an EKG, chest x-ray, troponin. Patient's EKG did not show any acute changes. Furthermore, after discussion with the patient he did have her recent which she states within the last 2 months stress test and echocardiogram which were normal. CXR neg acute. Given the patient's history and physical don't believe this to likely be a PE. Patient wells score of 0. Patient was feeling improved. Patient did have a repeat troponin at greater than 4 hours after symptom onset. This is again undetectable. Patient was then ambulated and he had no reproducible pain. History not concerning for ACS and given no changes in EKG and two neg troponins w/ no exertional pain, less like ACS. Patient was feeling improved. Patient does not have a surgical abdomen. He was able to tolerate by mouth. Patient was given strict follow-up and return precautions. Patient was deemed suitable for outpatient follow-up and treatment. She was agreeable with this plan.Patient was given strict follow -up, discharge, and return precautions. All questions were answered. Patient was deemed suitable for outpatient follow-up at this time. Patient agreed with the plan of care and was safely discharged home. Medication Reconcilliation Current Medication List: was personally reviewed by me Blood Pressure Screening Patient's blood pressure: Normal blood pressure Blood pressure disposition: Did not require urgent referral Impression Primary Impression: Epigastric pain Scribe Attestation The scribe's documentation has been prepared under my direction and personally reviewed by me in its entirety. I confirm that the note above accurately reflects all work, treatment, procedures, and medical decision making performed by me. Departure Information Dispostion Home / Self-Care Referrals Carlos Granda III, CRNP (PCP) Forms Call Back Authorization, HOME CARE DOCUMENTATION FORM, IMPORTANT VISIT INFORMATION Patient Instructions ED Epigastric Pain Marivel DUMAS [facility] Additional Instructions Please return to the emergency department if you have worsening or recurrent symptoms not amenable to at-home treatment. Please call for a follow-up appointment with her primary care physician. Please take your medications as prescribed. If you have other concerns and/or complaints please feel free to also call your primary care physician's office or return the ED for further evaluation, management, and treatment. You may try pepcid or other H2 ubaldo. You may also try a PPI like nexium. Consider smaller meals, avoid citrus/spicy foods as well as chocolate or peppermint. Do not lay down after meals. You may take 600 mg Ibuprofen every 6 hours as needed for pain with food for no more than 2 consecutive days. You may take tylenol 1000 mg every 6 hours as needed for pain. You may take motrin and tylenol separately or at the same time. Take your medications as prescribed. You have been examined and treated today on an emergency basis only. This is not a substitute for, or an effort to provide, complete comprehensive medical care. It is impossible to recognize and treat all injuries or illnesses in a single emergency department visit. It is therefore important that you follow up closely with [facility], your PCP, and/or your specialist(s). Call as soon as possible for an appointment. Thank you for your time and consideration. I look forward to speaking with you again soon. Please don't hesitate to call us if you have any questions.
[2017-03-06] MEDS ORDERED: ALUMINUM/MAGNESIUM SUSP 30 ML UDC ONE (08:43)
[2017-03-06] MEDS ORDERED: LIDOCAINE HCL 2% VISC SOLN 20 ML UDC ONE (08:44)
--- NOTE | 2017-03-06 08:55 | DIAGNOSTIC IMAGING REPORT ---
CHEST ONE VIEW PORTABLE HISTORY: 72 years-old Male CHEST PAIN acute atypical chest pain. Burning sensation of the mid sternal chest with nausea COMPARISON: Chest radiograph 01/13/2017 TECHNIQUE: Portable upright AP view of the chest FINDINGS: Cardiac silhouette is within normal limits. There is atherosclerosis of the aorta. Calcified right hilar lymph nodes compatible with prior granulomatous disease. There is no pneumothorax, pleural effusion, focal airspace consolidation or overt pulmonary edema. The bones of the chest are grossly intact. IMPRESSION: 1. No acute cardiopulmonary process. 2. Prior granulomatous disease. The above report was generated using voice recognition software. It may contain grammatical, syntax or spelling errors. Electronically signed by: Aneudy Fung M.D. 03/06/2017 8:54 AM Dictated Date/Time: 03/06/2017 8:52 AM
[2017-03-06 08:56] LABS: BASO % 1.3 %; BASO ABS # 0.09 K/uL (0-0.2); COMPLETE YES; EOS % 3.9 %; HEMATOCRIT 46.8 % (42-52); IG% 0.4 %; LYMPH ABS # 1.53 K/uL (1.2-3.4); MEAN CELL VOLUME 95.9 fL (80-100); MEAN CORPUSCULAR HEMOGLOBIN 32.6 pg (25-34); MEAN PLATELET VOLUME 11.2 fL (7.4-10.4); NEUT % 58.4 %; PLATELET COUNT 270 K/uL (130-400); RED BLOOD COUNT 4.88 M/uL (4.7-6.1); WHITE BLOOD COUNT 6.95 K/uL (4.8-10.8)
[2017-03-06] MEDS ORDERED: NRN/600 PO (09:04)
[2017-03-06] MEDS ORDERED: OMEG10007 PO (09:04)
[2017-03-06] MEDS ORDERED: LSN/10125 PO (09:05)
[2017-03-06 09:11] LABS: INR 0.9 (0.9-1.1); PARTIAL THROMBOPLASTIN RATIO 1.1; PROTHROMBIN TIME (PATIENT) 9.9 SECONDS (9.0-12.0)
[2017-03-06 09:16] LABS: ALT/SGPT 19 U/L (12-78); BLOOD UREA NITROGEN 21 mg/dl (7-18); BUN/CREATININE RATIO 15.3 (10-20); CALCIUM 9.3 mg/dl (8.5-10.1); CARBON DIOXIDE 34 mmol/L (21-32); CHLORIDE 100 mmol/L (98-107); CREATININE 1.37 mg/dl (0.60-1.40); GLUCOSE 138 mg/dl (70-99); POTASSIUM 3.7 mmol/L (3.5-5.1); SODIUM 140 mmol/L (136-145)
[2017-03-06 09:22] LABS: ALKALINE PHOSPHATASE 85 U/L (45-117); AST/SGOT 16 U/L (15-37)
[2017-03-06] MEDS ORDERED: LACTATED RINGER'S 1000ML 1,000 ML IV STA (09:24)
[2017-03-06 12:13] VITALS: BP 102/73; PULSE 77; O2SAT 94
== END 2017-03-06 12:16 | disposition home or self-care (01) ==
LOC: C.EDB 08:26 → C.EDA 12:16
DX: R10.13 Epigastric pain (principal); I45.10 Unspecified right bundle-branch block; I10 Essential (primary) hypertension; Z87.891 Personal history of nicotine dependence; Z79.82 Long term (current) use of aspirin; Z79.899 Other long term (current) drug therapy

== ENCOUNTER 2017-06-02 23:39 | Emergency (ER) | payer BC, OTHER ==
[~2017-06-02] VITALS: Ht 182.9 cm; Wt 97.0 kg
[~2017-06-02 23:39] MED LIST changes: -IBUP-1427 PO; +LSN/10125 PO; +NRN/600 PO; -ONDA8TAB6 PO
[2017-06-02 23:44] VITALS: Ht 182.9 cm; Wt 97.0 kg
[2017-06-03] MEDS ORDERED: ACETAMINOPHEN 500 MG TAB PO STA (00:01)
[2017-06-03] MEDS ORDERED: KETOROLAC TROMETHAMINE 30 MG/ML VIAL IV STA (00:01)
[2017-06-03] MEDS ORDERED: SODIUM CHLORIDE 0.9% 1000ML 1,000 ML IV STA (00:01)
--- NOTE | 2017-06-03 00:07 | EMERGENCY ROOM VISIT NOTE ---
History Report prepared by Haile: Tony Sanchez Under the Supervision of: Dr. Xu Santillan M.D. First contact with patient: 23:48 Chief Complaint: FLU LIKE SX Stated Complaint: FEVER ACHES AND COUGH History of Present Illness The patient is a 72 year old male who presents to the Emergency Room with complaints of worsening flu-like symptoms that began 2 days ago. Patient has associated symptoms of fevers, runny nose, joint pain, body aches, constipation , dehydration, and waxing and waning coughs. Patient states that his fever has ranged from 101 to 103.5. Patient states that he had one episode of coughing up a "glob of green stuff". Patient states his last bowel movement was 4 days ago. He states he has not taken Tylenol today for the symptoms. He states he took Tylenol PM 1 day ago. Patient states that he got the flu shot this year. He denies leg swelling, nausea, vomiting, or diarrhea. He denies any known allergies or cardiac problems. Patient states that he has had no appetite today. Patient adds that his has been sick for the past 5 days. Source of History: patient Onset: 2 days ago Timing: worsening Associated Symptoms: + fevers, + cough, No nausea, No vomiting, No diarrhea Note: Patient has a runny nose, joint pain, body aches, constipation, and dehydration. He denies leg swelling. Review of Systems See HPI for pertinent positives & negatives. A total of 10 systems reviewed and were otherwise negative. Past Medical & Surgical Medical Problems: (1) HTN (hypertension) Family History FHx: heart disease High blood pressure Omitted secondary to age. Social History Smoking Status: Former Smoker Drug Use: none Marital Status: Housing Status: lives with significant other Occupation Status: employed Current/Historical Medications Scheduled Aspirin (Aspirin Ec), 81 MG PO DAILY Atorvastatin (Lipitor), 10 MG PO Q2D Carvedilol (Coreg), 6.25 MG PO BID Cholecalciferol (D 1000), 1,000 UNITS PO HS Fish Oil ([place]-3), 2 CAP PO HS Fish Oil ([place]-3), 1 CAP PO QAM Gabapentin (Neurontin), 600 MG PO TID Hctz/Lisinopril (Lisinopril/Hctz 10/12.5 Mg), 1 TAB PO BID Levofloxacin (Levaquin), 750 MG PO QD@08 Niacin (Niacin), 500 MG PO HS Omeprazole (Prilosec), 20 MG PO QAM Scheduled PRN Tadalafil (Cialis), 20 MG PO UD PRN for activity Allergies Coded Allergies: No Known Allergies (Verified , 06/03/17) Physical Exam Vital Signs Date Time Temp Pulse Resp B/P (MAP) Pulse Ox O2 Delivery O2 Flow Rate FiO2 06/03/17 01:32 37.1 82 16 116/73 92 Room Air 06/03/17 00:26 90 06/02/17 23:44 37.7 102 16 131/88 93 Room Air Physical Exam GENERAL: Patient is uncomfortable appearing and in mild distress. HEENT: Mild cough, no acute trauma, normocephalic atraumatic, mucous membranes moist, no nasal congestion, no scleral icterus. NECK: No stridor, no adenopathy, no meningismus, trachea is midline. LUNGS: No dyspnea. Clear to auscultation and equal bilaterally. No wheeze, no rhonchi. HEART: Regular rate and rhythm. No murmurs, rubs, gallops appreciated. ABDOMEN: Soft, nontender, bowel sounds positive, no masses appreciated, no peritonitis. BACK: No midline tenderness, no CVA tenderness EXTREMITIES: Normal motion all extremities, no cyanosis, no edema. NEUROLOGIC: Alert and oriented, no acute motor or sensory deficits, no focal weakness, cranial nerves grossly intact. SKIN: Warm to touch, no rash, no jaundice, no diaphoresis. Medical Decision & Procedures ER Provider Diagnostic Interpretation: Radiology results and stated below were interpreted by me: Chest X-Ray: 1 view left lower lobe infiltrate. Laboratory Results 06/03/17 00:05 Red Blood Count 4.82, Mean Corpuscular Volume 95.6, Mean Corpuscular Hemoglobin 32.4, Mean Corpuscular Hemoglobin Concent 33.8, Mean Platelet Volume 11.6, Neutrophils (%) (Auto) 69.1, Lymphocytes (%) (Auto) 15.7, Monocytes (%) (Auto) 13.6, Eosinophils (%) (Auto) 0.5, Basophils (%) (Auto) 0.8, Neutrophils # (Auto ) 5.26, Lymphocytes # (Auto) 1.20, Monocytes # (Auto) 1.04, Eosinophils # (Auto ) 0.04, Basophils # (Auto) 0.06 06/03/17 00:05 Test 06/03/17 00:05 06/03/17 00:12 White Blood Count 7.62 K/uL (4.8-10.8) Red Blood Count 4.82 M/uL (4.7-6.1) Hemoglobin 15.6 g/dL (14.0-18.0) Hematocrit 46.1 % (42-52) Mean Corpuscular Volume 95.6 fL (80-100) Mean Corpuscular Hemoglobin 32.4 pg (25-34) Mean Corpuscular Hemoglobin Concent 33.8 g/dl (32-36) Platelet Count 184 K/uL (130-400) Mean Platelet Volume 11.6 fL (7.4-10.4) Neutrophils (%) (Auto) 69.1 % Lymphocytes (%) (Auto) 15.7 % Monocytes (%) (Auto) 13.6 % Eosinophils (%) (Auto) 0.5 % Basophils (%) (Auto) 0.8 % Neutrophils # (Auto) 5.26 K/uL (1.4-6.5) Lymphocytes # (Auto) 1.20 K/uL (1.2-3.4) Monocytes # (Auto) 1.04 K/uL (0.11-0.59) Eosinophils # (Auto) 0.04 K/uL (0-0.5) Basophils # (Auto) 0.06 K/uL (0-0.2) RDW Standard Deviation 48.7 fL (36.4-46.3) RDW Coefficient of Variation 14.0 % (11.5-14.5) Immature Granulocyte % (Auto) 0.3 % Immature Granulocyte # (Auto) 0.02 K/uL (0.00-0.02) Large Platelets 1+ Anion Gap 6.0 mmol/L (3-11) Est Creatinine Clear Calc Drug Dose 60.6 ml/min Estimated GFR () 60.1 Estimated GFR (Non- 51.9 BUN/Creatinine Ratio 13.4 (10-20) Calcium Level 8.6 mg/dl (8.5-10.1) Troponin I < 0.015 ng/ml (0-0.045) Influenza Type A Antigen Neg for Influ A (NEG) Influenza Type B Antigen Neg for Influ B (NEG) Laboratory results as reviewed by me. Medications Administered Medications (Trade) Dose Ordered Sig/Michaela Route Start Time Stop Time Status Last Admin Dose Admin Sodium Chloride 1,000 ml @ 999 mls/hr Q1H1M STAT IV 06/03/17 00:01 06/03/17 01:01 DC 06/03/17 00:15 999 MLS/HR Acetaminophen (Tylenol Tab) 1,000 mg NOW STAT PO 06/03/17 00:01 06/03/17 00:03 DC 06/03/17 00:16 1,000 MG Ketorolac Tromethamine (Toradol Inj) 10 mg NOW STAT IV 06/03/17 00:01 06/03/17 00:03 DC 06/03/17 00:17 10 MG Levofloxacin (Levaquin Tab) 750 mg NOW ONCE PO 06/03/17 01:45 06/03/17 01:46 DC 06/03/17 01:48 750 MG Magnesium Citrate (Citrate Of [place] Soln) 296 ml NOW STAT PO 06/03/17 01:38 06/03/17 01:39 DC 06/03/17 01:48 296 ML ECG Indication: other (Flu-like symptoms) Rate (beats per minute): 88 Rhythm: normal sinus Findings: RBBB, no acute ischemic change, no ectopy, other (Poor baseline) Change: EKG: Electrocardiogram per my interpretation. ED Course 1889: The patient was evaluated in room C10. A complete history and physical exam was performed. 0001: Toradol Inj 10mg IV, Tylenol Tab 1000mg PO, Sodium Chloride 1000 ml @ 999 mls/hr IV 0138: Magnesium Citrate 296ml PO 0145: Levofloxacin 750mg PO 0146: Reevaluated the patient. He states that he feels the best he has felt in the past 3-4 days. Discussed results and discharge instructions. He verbalized understanding and agreement. The patient is ready for discharge. Medical Decision Differential: Viral, Bronchitis, Pharyngitis, Pneumonia, Influenza, Sepsis, Bacteremia, Endocrine, Toxicologic, amongst other pathologies entertained. 72 yr old male with viral like illness, cough, fevers, fatigue who has with similar symptoms. Flu negative though he does have LLL infiltrate. Suspect some underlying dehydration as well by exam. Notes several days constipation with completely benign non-tender abdomen thus I do not feel imaging indicated at this time. After further discussion he notes that symptoms likely ongoing a few days thus even if flu seems unlikely Tamiflu would be effective. Feeling much better with above, O2 sats 93-96% on talking with him, thus I feel discharge reasonable as long as with and agrees to follow up with his PCP in next few days for recheck. Will start with Levaquin as he is not septic, and I cautioned him regarding risks tendon rupture. He is stable, breathing comfortably and feeling much improved. He is aware of symptoms requiring return. We will give him Mag Citrate for outpatient and he is aware to avoid using it at same time as Levaquin. Medication Reconcilliation Current Medication List: was personally reviewed by me Blood Pressure Screening Patient's blood pressure: Normal blood pressure Blood pressure disposition: Did not require urgent referral Impression Primary Impression: Pneumonia Additional Impressions: Constipation Dehydration Scribe Attestation The scribe's documentation has been prepared under my direction and personally reviewed by me in its entirety. I confirm that the note above accurately reflects all work, treatment, procedures, and medical decision making performed by me. Departure Information Dispostion Home / Self-Care Prescriptions Levofloxacin (Levaquin) 750 Mg Tab 750 MG PO QD@08, #5 TAB Prov: Xu Santillan M.D. 06/03/17 Referrals Carlos Granda III, CRNP (PCP) Patient Instructions ED Pneumonia Adult, My [facility] Additional Instructions Return if worsening. It is very important you get rechecked by your primary provider in the next few days. Take half a bottle of mag citrate in the morning. Problem Qualifiers
[2017-06-03 00:19] LABS: HEMATOCRIT 46.1 % (42-52); HEMOGLOBIN 15.6 g/dL (14.0-18.0); MEAN CELL VOLUME 95.6 fL (80-100); MEAN CORPUSCULAR HEMOGLOBIN 32.4 pg (25-34); MEAN CORPUSCULAR HGB CONC 33.8 g/dl (32-36); MEAN PLATELET VOLUME 11.6 fL (7.4-10.4); PLATELET COUNT 184 K/uL (130-400); RED CELL DISTRIBUTION WIDTH SD 48.7 fL (36.4-46.3); WHITE BLOOD COUNT 7.62 K/uL (4.8-10.8)
[2017-06-03 00:59] LABS: BLOOD UREA NITROGEN 18 mg/dl (7-18); CALCIUM 8.6 mg/dl (8.5-10.1); CARBON DIOXIDE 27 mmol/L (21-32); CREATININE 1.37 mg/dl (0.60-1.40); GLUCOSE 112 mg/dl (70-99); POTASSIUM 3.6 mmol/L (3.5-5.1); SODIUM 134 mmol/L (136-145)
[2017-06-03 01:18] LABS: INFLUENZA B ANTIGEN Neg for Influ B (NEG)
[2017-06-03 01:32] VITALS: BP 116/73; PULSE 82; TEMP 37.1; O2SAT 92
[2017-06-03] MEDS ORDERED: MAGNESIUM CITRATE 296 ML/BTL PO STA (01:38)
[2017-06-03] MEDS ORDERED: LEVO1TAB35 PO (01:40)
[2017-06-03] MEDS ORDERED: LEVOFLOXACIN 250 MG TAB PO ONE (01:45)
[2017-06-03 01:55] LABS: BASO % 0.8 %; BASO ABS # 0.06 K/uL (0-0.2); EOS % 0.5 %; EOS ABS # 0.04 K/uL (0-0.5); IG# 0.02 K/uL (0.00-0.02); LYMPH % 15.7 %; MONO % 13.6 %; MONO ABS # 1.04 K/uL (0.11-0.59); NEUT % 69.1 %; NEUT ABS # 5.26 K/uL (1.4-6.5)
--- NOTE | 2017-06-03 06:07 | DIAGNOSTIC IMAGING REPORT ---
CHEST ONE VIEW PORTABLE CLINICAL HISTORY: Chest Pain dyspnea COMPARISON STUDY: 03/06/2017 FINDINGS: Mild stable cardia megaly. Diaphragms are smooth. Probably defined infiltrate left base. Prominence of pulmonary vasculature. IMPRESSION: Small parenchymal infiltrate left base. Mild prominence of the pulmonary vasculature. The above report was generated using voice recognition software. It may contain grammatical, syntax or spelling errors. Electronically signed by: London Garcia M.D. 06/03/2017 6:06 AM Dictated Date/Time: 06/03/2017 6:06 AM
[2017-06-04] MEDS ORDERED: LEVO1TAB35 PO (18:01)
[2017-06-04] MEDS ORDERED: OSEL75CA23 PO (18:36)
== END 2017-06-03 01:51 | disposition home or self-care (01) ==
LOC: C.EDB 23:40 → C.EDC 06-03 01:51
DX: J18.9 Pneumonia, unspecified organism (principal); K59.00 Constipation, unspecified; E86.0 Dehydration; I45.10 Unspecified right bundle-branch block; I10 Essential (primary) hypertension; Z79.82 Long term (current) use of aspirin; Z82.49 Family history of ischemic heart disease and other diseases of the circulatory system

== ENCOUNTER 2017-06-04 15:11 | Emergency (ER) | payer OTHER ==
[~2017-06-04] VITALS: Ht 182.9 cm; Wt 95.9 kg
[~2017-06-04 15:11] MED LIST changes: +LEVO1TAB35 PO
[2017-06-04 16:38] VITALS: O2SAT 95; Ht 182.9 cm; Wt 95.9 kg
[2017-06-04 17:10] LABS: BASO % 0.6 %; BASO ABS # 0.03 K/uL (0-0.2); EOS % 0.9 %; EOS ABS # 0.04 K/uL (0-0.5); HEMATOCRIT 47.5 % (42-52); HEMOGLOBIN 16.1 g/dL (14.0-18.0); IG# 0.01 K/uL (0.00-0.02); LYMPH % 22.7 %; LYMPH ABS # 1.06 K/uL (1.2-3.4); MEAN CELL VOLUME 95.8 fL (80-100); MEAN CORPUSCULAR HEMOGLOBIN 32.5 pg (25-34); MEAN CORPUSCULAR HGB CONC 33.9 g/dl (32-36); MEAN PLATELET VOLUME 11.5 fL (7.4-10.4); MONO % 21.9 %; MONO ABS # 1.02 K/uL (0.11-0.59); NEUT % 53.7 %; PLATELET COUNT 168 K/uL (130-400); WHITE BLOOD COUNT 4.66 K/uL (4.8-10.8)
[2017-06-04 17:18] LABS: PTT PATIENT 29.6 SECONDS (21.0-31.0)
[2017-06-04 17:27] LABS: ALBUMIN 3.4 gm/dl (3.4-5.0); CALCIUM 8.5 mg/dl (8.5-10.1); CREATININE 1.31 mg/dl (0.60-1.40); POTASSIUM 3.8 mmol/L (3.5-5.1)
[2017-06-04 17:30] LABS: TOTAL PROTEIN 7.2 gm/dl (6.4-8.2)
--- NOTE | 2017-06-04 17:54 | DIAGNOSTIC IMAGING REPORT ---
CHEST 2 VIEWS ROUTINE CLINICAL HISTORY: eval for pna dyspnea COMPARISON STUDY: 06/03/2017 FINDINGS: Improved aeration left base. Lungs are now considered generally clear. Heart is top limits of normal in terms of size. Diaphragms smooth. IMPRESSION: Improved aeration left lung base with the lungs now considered essentially clear. The above report was generated using voice recognition software. It may contain grammatical, syntax or spelling errors. Electronically signed by: London Garcia M.D. 06/04/2017 5:52 PM Dictated Date/Time: 06/04/2017 5:52 PM
[2017-06-04] MEDS ORDERED: LEVO1TAB35 PO (18:01)
[2017-06-04 18:29] LABS: INFLUENZA A PCR Neg for Influ A (NEG); INFLUENZA B PCR POS for Influ B (NEG)
[2017-06-04] MEDS ORDERED: ALBUTEROL HFA 8 GM INHALER INH ONE (18:30)
[2017-06-04] MEDS ORDERED: OSELTAMIVIR PHOSPHATE 75 MG CAP PO STA (18:35)
[2017-06-04] MEDS ORDERED: OSEL75CA23 PO (18:36)
[2017-06-04 18:41] VITALS: BP 116/74; PULSE 69; TEMP 36.8; O2SAT 96
--- NOTE | 2017-06-04 19:48 | EMERGENCY ROOM VISIT NOTE ---
History Report prepared by Haile: Chau Fernandez Under the Supervision of: Dr. Tony Cardona M.D. First contact with patient: 16:25 Chief Complaint: RESPIRATORY PROBLEMS Stated Complaint: PNEUMONIA GETTING WORSE Nursing Triage Summary: pt seen in ER on Sunday dx with pneumonia pt reports feeling worse on antibiotic bodyaches short of breath is worse no swelling in legs cough History of Present Illness The patient is a 72 year old male who presents to the Emergency Room with complaints of worsening flulike symptoms h beginning four days ago. He was seen in the ED two days ago for similar symptoms and was diagnosed with left lower lobe pneumonia. He was discharged on Levaquin. The patient also complains of shortness of breath when he lies backwards, generalized weakness, cough, sinus congestion, body aches, and fevers. He states that his weakness has worsened. He denies any known tick bites, or rashes. The patient has had two total doses of his Levaquin, but does not feel that it is helping. He denies nausea or vomiting. Source of History: patient Onset: Four days ago Position: other (Global) Quality: other (Flulike symptoms) Timing: worsening Associated Symptoms: + fevers, + cough, + SOB (When supine), + weakness ( worsening, generalized), No nausea, No vomiting, No rash Note: Additional symptoms: sinus congestion, and body aches. Review of Systems See HPI for pertinent positives & negatives. A total of 10 systems reviewed and were otherwise negative. Past Medical & Surgical Medical Problems: (1) HTN (hypertension) Family History FHx: heart disease High blood pressure Social History Smoking Status: Former Smoker Drug Use: none Marital Status: Housing Status: lives with significant other Occupation Status: employed Current/Historical Medications Scheduled Aspirin (Aspirin Ec), 81 MG PO DAILY Atorvastatin (Lipitor), 10 MG PO Q2D Carvedilol (Coreg), 6.25 MG PO BID Cholecalciferol (D 1000), 1,000 UNITS PO HS Fish Oil ([place]-3), 2 CAP PO HS Fish Oil ([place]-3), 1 CAP PO QAM Gabapentin (Neurontin), 600 MG PO TID Hctz/Lisinopril (Lisinopril/Hctz 10/12.5 Mg), 1 TAB PO BID Levofloxacin (Levaquin), 750 MG PO DAILY Niacin (Niacin), 500 MG PO HS Omeprazole (Prilosec), 20 MG PO QAM Oseltamivir Phosphate (Tamiflu), 75 MG PO BID Scheduled PRN Tadalafil (Cialis), 20 MG PO UD PRN for activity Allergies Coded Allergies: No Known Allergies (Verified , 06/03/17) Physical Exam Vital Signs Date Time Temp Pulse Resp B/P (MAP) Pulse Ox O2 Delivery O2 Flow Rate FiO2 06/04/17 18:41 36.8 69 18 116/74 96 Room Air 06/04/17 16:57 68 18 128/86 94 Room Air 06/04/17 16:38 95 Room Air 06/04/17 16:34 67 06/04/17 15:37 96 Room Air 06/04/17 15:33 36.8 70 20 132/82 95 Room Air Physical Exam Constitutional: Vital signs reviewed. Eyes: Pupils are equal round reactive to light. Conjunctiva are noninjected. ENT: Pharynx is clear without erythema or exudate. Mucous membranes are moist. Neck supple without meningeal signs. Respiratory: Clear to auscultation bilaterally. Breath sounds are equal bilaterally. Cardiovascular: Regular rate and rhythm. No rubs or gallops. GI: Soft, nondistended and nontender. Bowel sounds are present. Musculoskeletal: A brace to the left leg. No peripheral edema. No lower extremity tenderness. Integumentary: No cyanosis. Neurological: The patient is awake and alert. No focal deficits. Psychiatric: Normal affect. Medical Decision & Procedures ER Provider Diagnostic Interpretation: Radiology results as stated below per my review and the radiologist's interpretation: CHEST 2 VIEWS ROUTINE FINDINGS: Improved aeration left base. Lungs are now considered generally clear. Heart is top limits of normal in terms of size. Diaphragms smooth. IMPRESSION: Improved aeration left lung base with the lungs now considered essentially clear. The above report was generated using voice recognition software. It may contain grammatical, syntax or spelling errors. Electronically signed by: London Garcia M.D. 06/04/2017 5:52 PM Laboratory Results 06/04/17 16:50 Red Blood Count 4.96, Mean Corpuscular Volume 95.8, Mean Corpuscular Hemoglobin 32.5, Mean Corpuscular Hemoglobin Concent 33.9, Mean Platelet Volume 11.5, Neutrophils (%) (Auto) 53.7, Lymphocytes (%) (Auto) 22.7, Monocytes (%) (Auto) 21.9, Eosinophils (%) (Auto) 0.9, Basophils (%) (Auto) 0.6, Neutrophils # (Auto ) 2.50, Lymphocytes # (Auto) 1.06, Monocytes # (Auto) 1.02, Eosinophils # (Auto ) 0.04, Basophils # (Auto) 0.03 06/04/17 16:50 Test 06/04/17 16:50 06/04/17 17:00 White Blood Count 4.66 K/uL (4.8-10.8) Red Blood Count 4.96 M/uL (4.7-6.1) Hemoglobin 16.1 g/dL (14.0-18.0) Hematocrit 47.5 % (42-52) Mean Corpuscular Volume 95.8 fL (80-100) Mean Corpuscular Hemoglobin 32.5 pg (25-34) Mean Corpuscular Hemoglobin Concent 33.9 g/dl (32-36) Platelet Count 168 K/uL (130-400) Mean Platelet Volume 11.5 fL (7.4-10.4) Neutrophils (%) (Auto) 53.7 % Lymphocytes (%) (Auto) 22.7 % Monocytes (%) (Auto) 21.9 % Eosinophils (%) (Auto) 0.9 % Basophils (%) (Auto) 0.6 % Neutrophils # (Auto) 2.50 K/uL (1.4-6.5) Lymphocytes # (Auto) 1.06 K/uL (1.2-3.4) Monocytes # (Auto) 1.02 K/uL (0.11-0.59) Eosinophils # (Auto) 0.04 K/uL (0-0.5) Basophils # (Auto) 0.03 K/uL (0-0.2) RDW Standard Deviation 49.0 fL (36.4-46.3) RDW Coefficient of Variation 14.0 % (11.5-14.5) Immature Granulocyte % (Auto) 0.2 % Immature Granulocyte # (Auto) 0.01 K/uL (0.00-0.02) Prothrombin Time 10.0 SECONDS (9.0-12.0) Prothromb Time International Ratio 1.0 (0.9-1.1) Activated Partial Thromboplast Time 29.6 SECONDS (21.0-31.0) Partial Thromboplastin Ratio 1.1 Anion Gap 6.0 mmol/L (3-11) Est Creatinine Clear Calc Drug Dose 63.0 ml/min Estimated GFR () 63.5 Estimated GFR (Non- 54.8 BUN/Creatinine Ratio 11.7 (10-20) Calcium Level 8.5 mg/dl (8.5-10.1) Total Bilirubin 0.4 mg/dl (0.2-1) Aspartate Amino Transf (AST/SGOT) 17 U/L (15-37) Alanine Aminotransferase (ALT/SGPT) 24 U/L (12-78) Alkaline Phosphatase 75 U/L (45-117) Total Protein 7.2 gm/dl (6.4-8.2) Albumin 3.4 gm/dl (3.4-5.0) Globulin 3.8 gm/dl (2.5-4.0) Albumin/Globulin Ratio 0.9 (0.9-2) Influenza Type A (RT-PCR) Neg for Influ A (NEG) Influenza Type B (RT-PCR) POS for Influ B (NEG) Laboratory results as reviewed by me. Medications Administered Medications (Trade) Dose Ordered Sig/Michaela Route Start Time Stop Time Status Last Admin Dose Admin Albuterol (Ventolin Hfa Inhaler) 2 puffs NOW ONCE INH 06/04/17 18:30 06/04/17 18:31 DC 06/04/17 18:40 2 PUFFS Oseltamivir Phosphate (Tamiflu Cap) 75 mg NOW STAT PO 06/04/17 18:35 06/04/17 18:36 DC 06/04/17 18:41 75 MG ECG Indication: SOB/dyspnea Rate (beats per minute): 68 Rhythm: normal sinus Findings: RBBB, no ectopy Comparison ECG Date: 06/02/2017 Change: no significant change ED Course 1628: The patient was evaluated in room C5. A complete history and physical exam was performed. 5: I reassessed the patient. He is feeling better, awaiting influenza results. 0: Ordered Ventolin Hfa Inhaler 2 puffs INH. 1833: I discussed the positive influenza test with the patient. He verbalized agreement of the treatment plan. The patient was discharged home. 1835: Ordered Tamiflu Cap 75 mg PO. Medical Decision This is a 72-year-old male who presents with flulike symptoms. Differential diagnosis includes pneumonia, influenza, outpatient treatment failure, viral syndrome. I did perform a limited focused review of portions of the patient's old chart on the electronic medical record. The patient was seen in the ED two days ago. He was diagnosed with left lower lobe pneumonia. He had a negative flu antigen test and was discharged on Levaquin. I did evaluate the patient as noted above. IV access was established. The patient was placed on a continuous corn cutter. I did order and personally review the patient's 12-lead EKG and chest x-ray as described above. His x-ray demonstrates resolution of his pneumonia. I did order and review the patient's blood work as noted in the electronic medical record. His white blood cell count is not elevated. I did treat the patient with a albuterol MDI. His flu test came back positive for influenza B. I did discuss the test results with the patient. He was treated with Tamiflu. There is no indication for admission at this time. His pneumonia is resolved. He is not hypoxic. He was discharged home and advised to follow closely with his doctor. He was discharged with a prescription for Tamiflu. Medication Reconcilliation Current Medication List: was personally reviewed by me Blood Pressure Screening Patient's blood pressure: Elevated blood pressure Blood pressure disposition: Referred to PCP Impression Primary Impression: Influenza B Scribe Attestation The scribe's documentation has been prepared under my direct and personally reviewed by me in its entirety. I confirm that the note above accurately reflects all work, treatment, procedures, and medical decision making performed by me. Departure Information Dispostion Home / Self-Care Prescriptions Oseltamivir Phosphate (Tamiflu) 75 Mg Cap 75 MG PO BID, #10 CAP Prov: Tony Cardona M.D. 06/04/17 Referrals Carlos Granda III, CRNP (PCP) Forms HOME CARE DOCUMENTATION FORM, IMPORTANT VISIT INFORMATION, WORK / SCHOOL INSTRUCTIONS Patient Instructions ED Flu, My [facility] Additional Instructions You have been examined and treated today on an emergency basis only. This is not a substitute for, or an effort to provide, complete comprehensive medical care. It is impossible to recognize and treat all injuries or illnesses in a single emergency department visit. It is therefore important that you follow up closely with your physician. Call as soon as possible for an appointment. Return for worsening symptoms or if you develop chest pain, difficulty breathing , vomiting, or any other concerning symptoms. Continue your antibiotic.
== END 2017-06-04 18:59 | disposition home or self-care (01) ==
LOC: C.EDB 15:12 → C.EDC 18:59
DX: J10.1 Influenza due to other identified influenza virus with other respiratory manifestations (principal); I10 Essential (primary) hypertension; Z79.82 Long term (current) use of aspirin; Z87.891 Personal history of nicotine dependence; Z82.49 Family history of ischemic heart disease and other diseases of the circulatory system

== ENCOUNTER → 2017-06-25 | Outpatient (CLI) | payer OTHER ==
[~2017-06-25] MED LIST changes: +OSEL75CA23 PO
--- NOTE | 2017-06-25 14:02 | DIAGNOSTIC IMAGING REPORT ---
CHEST 2 VIEWS ROUTINE CLINICAL HISTORY: J18.9 [id number] COMPARISON STUDY: 06/04/2017 FINDINGS: The cardiac and mediastinal contours are normal. There is no evidence of focal pulmonary consolidation. There is no evidence of failure. No pleural effusions are visualized.[ IMPRESSION: No active disease in the chest. Electronically signed by: Khris Lamb M.D. 06/25/2017 2:00 PM Dictated Date/Time: 06/25/2017 2:00 PM
== END | disposition home or self-care (01) ==
LOC: C.RAD1850 13:47
PROVIDERS: ATTEND Nurse Practitioner Family
DX: J18.9 Pneumonia, unspecified organism (principal)

== ENCOUNTER → 2017-08-13 | Outpatient (CLI) | payer BC ==
[2017-08-13 12:22] LABS: BASO % 2.3 %; BASO ABS # 0.13 K/uL (0-0.2); EOS % 4.9 %; EOS ABS # 0.28 K/uL (0-0.5); HEMOGLOBIN 16.5 g/dL (14.0-18.0); IG# 0.02 K/uL (0.00-0.02); LYMPH % 25.4 %; LYMPH ABS # 1.46 K/uL (1.2-3.4); MEAN CELL VOLUME 94.1 fL (80-100); MEAN CORPUSCULAR HEMOGLOBIN 32.4 pg (25-34); MEAN CORPUSCULAR HGB CONC 34.4 g/dl (32-36); MEAN PLATELET VOLUME 11.5 fL (7.4-10.4); MONO % 14.1 %; MONO ABS # 0.81 K/uL (0.11-0.59); NEUT ABS # 3.05 K/uL (1.4-6.5); PLATELET COUNT 245 K/uL (130-400); RED CELL DISTRIBUTION WIDTH CV 14.4 % (11.5-14.5); RED CELL DISTRIBUTION WIDTH SD 49.5 fL (36.4-46.3); WHITE BLOOD COUNT 5.75 K/uL (4.8-10.8)
[2017-08-13 12:57] LABS: ALBUMIN 3.6 gm/dl (3.4-5.0); AST/SGOT 22 U/L (15-37); BLOOD UREA NITROGEN 19 mg/dl (7-18); CALCIUM 8.8 mg/dl (8.5-10.1); CARBON DIOXIDE 33 mmol/L (21-32); CHOLESTEROL 150 mg/dl (0-200); CREATININE 1.35 mg/dl (0.60-1.40); GLUCOSE 112 mg/dl (70-99); POTASSIUM 3.8 mmol/L (3.5-5.1); SODIUM 139 mmol/L (136-145)
[2017-08-13 13:00] LABS: ALKALINE PHOSPHATASE 78 U/L (45-117); ALT/SGPT 35 U/L (12-78); LDL CHOLESTEROL CALCULATED 79 mg/dl; TOTAL PROTEIN 7.3 gm/dl (6.4-8.2)
[2017-08-13 13:05] LABS: HEMOGLOBIN A1C 5.7 % (4.5-5.6)
== END | disposition home or self-care (01) ==
LOC: C.LAB1850 11:28
PROVIDERS: ATTEND Nurse Practitioner Family
DX: E78.5 Hyperlipidemia, unspecified (principal); R73.9 Hyperglycemia, unspecified; I10 Essential (primary) hypertension